=== PATIENT | male | born 1980 | race African-American/Black ===

== ENCOUNTER 2018-07-24 00:50 | Emergency (ER) | payer SELFPAY ==
[~2018-07-24] VITALS: Ht 175.3 cm; Wt 90.7 kg
[2018-07-24 00:50] VITALS: BP 131/70
[2018-07-24] MEDS ORDERED: NEOMYCIN/POLYMYXIN/BACITRACIN 0.9 GM/1 PKT TP ONE (01:05)
[2018-07-24 01:37] VITALS: BP 131/70
== END 2018-07-24 01:57 | disposition home or self-care (01) ==
LOC: MED 00:50
DX: S99.922A Unspecified injury of left foot, initial encounter (principal); Z59.0 Homelessness; X58.XXXA Exposure to other specified factors, initial encounter; Y93.89 Activity, other specified; Y92.89 Other specified places as the place of occurrence of the external cause; Y99.8 Other external cause status
CPT/HCPCS: 99282; 99283